=== PATIENT | female | born 1990 | race Caucasian/White ===

== ENCOUNTER 2017-09-18 08:48 | Emergency (ER) | payer OTHER ==
[~2017-09-18] VITALS: Ht 162.6 cm; Wt 99.2 kg
[2017-09-18 08:50] VITALS: BP 127/83
[2017-09-18 09:32] LABS: BASOPHILS # (AUTO) 0.03 x10^3/uL (0-0.1); BASOPHILS % (AUTO) 0 % (0-1); EOSINOPHILS # (AUTO) 0.23 x10^3/uL (0-0.4); EOSINOPHILS % (AUTO) 3 % (1-7); LYMPHOCYTES # (AUTO) 1.53 x10^3/uL (1-3.4); LYMPHOCYTES % (AUTO) 20 % (22-44); MD NO; MEAN CORPUSCULAR HEMOGLOBIN 29.2 pg (27.0-34.8); MEAN CORPUSCULAR HGB CONC 33.4 g/dL (32.4-35.8); MEAN CORPUSCULAR VOLUME 87.5 fL (80-100); MEAN PLATELET VOLUME 7.1 fL (7.4-10.4); MONOCYTES # (AUTO) 0.56 x10^3/uL (0.2-0.8); MONOCYTES % (AUTO) 8 % (2-9); NEUTROPHILS # (AUTO) 5.14 x10^3/uL (1.8-6.8); NEUTROPHILS % (AUTO) 69 % (42-75); PLATELET COUNT 405 x10^3/uL (130-400); RED BLOOD COUNT 3.79 x10^6/uL (3.82-5.3); RED CELL DISTRIBUTION WIDTH 13.6 % (9.6-15.2)
== END 2017-09-18 10:10 | disposition home or self-care (01) ==
LOC: ED 10:04
DX: K64.4 Residual hemorrhoidal skin tags (principal); K62.5 Hemorrhage of anus and rectum; D64.9 Anemia, unspecified; K60.0 Acute anal fissure
CPT/HCPCS: 36415; 85025; 99283

== ENCOUNTER → 2017-09-27 | Outpatient (CLI) | payer OTHER ==
[~2017-09-27] MED LIST: METF500T4 PO; NORG1TAB27 PO; SPIR50TA PO
[2017-09-27 10:38] LABS: BASOPHILS # (AUTO) 0.03 x10^3/uL (0-0.1); BASOPHILS % (AUTO) 0 % (0-1); EOSINOPHILS # (AUTO) 0.28 x10^3/uL (0-0.4); EOSINOPHILS % (AUTO) 4 % (1-7); LYMPHOCYTES # (AUTO) 1.78 x10^3/uL (1-3.4); LYMPHOCYTES % (AUTO) 24 % (22-44); MD NO; MEAN CORPUSCULAR HGB CONC 33.4 g/dL (32.4-35.8); MEAN CORPUSCULAR VOLUME 86.8 fL (80-100); MEAN PLATELET VOLUME 6.8 fL (7.4-10.4); MONOCYTES # (AUTO) 0.53 x10^3/uL (0.2-0.8); MONOCYTES % (AUTO) 7 % (2-9); NEUTROPHILS # (AUTO) 4.67 x10^3/uL (1.8-6.8); NEUTROPHILS % (AUTO) 64 % (42-75); PLATELET COUNT 422 x10^3/uL (130-400); RED BLOOD COUNT 3.83 x10^6/uL (3.82-5.3); RED CELL DISTRIBUTION WIDTH 13.8 % (9.6-15.2)
[2017-09-27 10:48] LABS: ALANINE AMINOTRANSFERASE 18 U/L (12-78); ALBUMIN 3.2 g/dL (3.4-5.0); ANION GAP 6 mmol/L (5-15); CALCIUM 8.5 mg/dL (8.5-10.1); CHLORIDE 104 mmol/L (98-107)
[2017-09-27 10:51] LABS: ALKALINE PHOSPHATASE 86 U/L (45-117); BILIRUBIN,TOTAL 0.8 mg/dL (0.2-1.0); CREATININE 1.43 mg/dL (0.55-1.02)
== END | disposition home or self-care (01) ==
LOC: STAR 09:33
PROVIDERS: ATTEND Surgery
DX: Z01.818 Encounter for other preprocedural examination (principal)
CPT/HCPCS: 36415; 80053; 85025; 93005

== ENCOUNTER 2017-10-04 09:39 | Day surgery (SDC) | payer OTHER ==
[~2017-10-04] VITALS: Ht 162.6 cm; Wt 92.7 kg
[~2017-10-04 09:39] MED LIST changes: -METF500T4 PO; +METF500T5 PO
[2017-10-04] MEDS ORDERED: BUPIVACAINE LIPOSOME/PF INFIL ONE (09:45)
[2017-10-04] MEDS ORDERED: LACTATED RINGERS 1,000 ML IV SCH (09:53)
[2017-10-04 09:54] VITALS: BP 128/86
[2017-10-04] MEDS ORDERED: ACETAMINOPHEN 500 MG TABLET ONE (10:09)
[2017-10-04] MEDS ORDERED: ONDANSETRON ODT 8 MG ONE (10:09)
[2017-10-04] MEDS ORDERED: GABAPENTIN 300 MG CAPSULE ONE (10:09)
[2017-10-04] MEDS ORDERED: LABETALOL 5MG/ML, 20ML ONE (10:23)
[2017-10-04] MEDS ORDERED: ROCURONIUM 10 MG/ML,10ML ONE (10:23)
[2017-10-04] MEDS ORDERED: PROPOFOL 10 MG/ML, 20ML ONE (10:23)
[2017-10-04] MEDS ORDERED: GABAPENTIN 300 MG CAPSULE PO ONE (10:30)
[2017-10-04] MEDS ORDERED: ONDANSETRON ODT 8 MG PO ONE (10:30)
[2017-10-04] MEDS ORDERED: ACETAMINOPHEN 500 MG TABLET PO ONE (10:30)
[2017-10-04] MEDS ORDERED: KETAMINE 10 MG/ML, 20ML ONE (10:32)
[2017-10-04] MEDS ORDERED: ACETAMINOPHEN 500 MG TABLET PO STA (10:33)
[2017-10-04] MEDS ORDERED: DEXAMETHASONE 4 MG/ML, 1ML ONE ×2 (10:33)
[2017-10-04] MEDS ORDERED: ONDANSETRON ODT 8 MG PO STA (10:33)
[2017-10-04] MEDS ORDERED: GABAPENTIN 300 MG CAPSULE PO STA (10:33)
[2017-10-04] MEDS ORDERED: FENTANYL PF 100 MCG/2ML ONE ×3 (10:38→11:45)
[2017-10-04] MEDS ORDERED: hydrALAzine 20 MG/ML, 1ML IV PRN (11:00)
[2017-10-04] MEDS ORDERED: LABETALOL 5MG/ML, 20ML IV PRN (11:00)
[2017-10-04] MEDS ORDERED: OXYcodone 5 MG/5 ML ORAL.SOL UDC PO PRN (11:00)
[2017-10-04] MEDS ORDERED: HYDROmorphone 1 MG/ML, 1ML IV PRN (11:00)
[2017-10-04] MEDS ORDERED: PROMETHAZINE 25 MG/ML, 1ML IV PRN (11:00)
[2017-10-04] MEDS ORDERED: FENTANYL PF 100 MCG/2ML IV PRN (11:00)
[2017-10-04] MEDS ORDERED: LORazepam 2 MG/ML, 1ML IVPush PRN (11:00)
[2017-10-04] MEDS ORDERED: HALOPERIDOL 5 MG/ML IV PRN (11:00)
[2017-10-04] MEDS ORDERED: MEPERIDINE/PF 25MG/0.5ML IVPush PRN (11:00)
[2017-10-04] MEDS ORDERED: MIDAZOLAM 1 MG/ML, 2ML ONE (11:14)
[2017-10-04] MEDS ORDERED: OXYcodone 5 MG/5 ML ORAL.SOL UDC ONE (11:46)
== END 2017-10-04 14:15 | disposition home or self-care (01) ==
LOC: OUT 09:39
PROVIDERS: ATTEND Surgery
DX: K64.8 Other hemorrhoids (principal); K64.4 Residual hemorrhoidal skin tags; K62.0 Anal polyp; D50.9 Iron deficiency anemia, unspecified; K62.89 Other specified diseases of anus and rectum; E66.9 Obesity, unspecified; Z68.35 Body mass index [BMI] 35.0-35.9, adult; Z98.890 Other specified postprocedural states
CPT/HCPCS: 45171; 46260; 82962; 88305; 88331; C1729; C9290; J1100; J2250; J2704; J3010; J7120; Q0162

== ENCOUNTER 2018-02-25 16:34 | Inpatient (IN) | payer OTHER ==
[~2018-02-25] VITALS: Ht 157.5 cm; Wt 92.0 kg
[~2018-02-25 16:34] MED LIST changes: +METF500T17 PO; -METF500T5 PO
[2018-02-25] MEDS ORDERED: SODIUM CHLORIDE FLUSH 10ML SYR IVF ONE ×2 (17:00→19:00)
[2018-02-25] MEDS ORDERED: ONDANSETRON ODT 4 MG PO ONE (17:00)
[2018-02-25] MEDS ORDERED: ONDANSETRON ODT 4 MG ONE (17:09)
[2018-02-25 17:36] LABS: BASOPHILS % (AUTO) 0 % (0-1); EOSINOPHILS # (AUTO) 0.05 x10^3/uL (0-0.4); EOSINOPHILS % (AUTO) 0 % (1-7); LYMPHOCYTES # (AUTO) 0.62 x10^3/uL (1-3.4); LYMPHOCYTES % (AUTO) 5 % (22-44); MD NO; MEAN CORPUSCULAR HEMOGLOBIN 26.1 pg (27.0-34.8); MEAN CORPUSCULAR HGB CONC 32.5 g/dL (32.4-35.8); MEAN CORPUSCULAR VOLUME 80.4 fL (80-100); MEAN PLATELET VOLUME 6.6 fL (7.4-10.4); MONOCYTES % (AUTO) 5 % (2-9); NEUTROPHILS % (AUTO) 90 % (42-75); PLATELET COUNT 357 x10^3/uL (130-400); RED BLOOD COUNT 3.94 x10^6/uL (3.82-5.3); RED CELL DISTRIBUTION WIDTH 14.9 % (9.6-15.2)
[2018-02-25 17:45] LABS: ALANINE AMINOTRANSFERASE 39 U/L (12-78); ALBUMIN 3.7 g/dL (3.4-5.0); ANION GAP 10 mmol/L (5-15); CALCIUM 9.3 mg/dL (8.5-10.1); CHLORIDE 105 mmol/L (98-107)
[2018-02-25 17:53] LABS: ALKALINE PHOSPHATASE 124 U/L (45-117); BILIRUBIN,TOTAL 0.3 mg/dL (0.2-1.0); CREATININE 0.92 mg/dL (0.55-1.02); TOTAL PROTEIN 8.7 g/dL (6.4-8.2)
[2018-02-25] MEDS ORDERED: ONDANSETRON 2MG/ML, 2ML IVPush ONE (19:00)
[2018-02-25] MEDS ORDERED: SODIUM CHLORIDE 0.9% 1,000ML IVBOLUS ONE (19:00)
[2018-02-25] MEDS ORDERED: MORPHINE SULFATE 4 MG/ML, 1ML IVPush PRN (19:00)
[2018-02-25] MEDS ORDERED: ONDANSETRON 2MG/ML, 2ML ONE (19:09)
[2018-02-25] MEDS ORDERED: MORPHINE SULFATE 4 MG/ML, 1ML ONE (19:10)
[2018-02-25] MEDS ORDERED: SODIUM CHLORIDE 0.9% 1,000 ML IV ONE (19:11)
[2018-02-25] MEDS ORDERED: SODIUM CHLORIDE FLUSH 10ML SYR IVF PRN (19:30)
[2018-02-25 20:21] VITALS: BP 106/65
[2018-02-25] MEDS ORDERED: ONDANSETRON ODT 4 MG PO PRN (20:30)
[2018-02-25] MEDS ORDERED: LABETALOL 5MG/ML, 20ML IVPush PRN (20:30)
[2018-02-25] MEDS ORDERED: BISACODYL 10 MG SUPP PR PRN (20:30)
[2018-02-25] MEDS ORDERED: HEPARIN 5,000 UNITS/ML, 1ML SQ SCH (20:30)
[2018-02-25] MEDS ORDERED: ACETAMINOPHEN 325 MG TABLET PO PRN (20:30)
[2018-02-25] MEDS ORDERED: POLYETHYLENE GLYCOL 17 GM PACKET PO PRN (20:30)
[2018-02-25] MEDS ORDERED: DOCUSATE 100 MG CAPSULE PO PRN (20:30)
[2018-02-25] MEDS ORDERED: hydrALAzine 20 MG/ML, 1ML IVPush PRN (20:30)
[2018-02-25] MEDS ORDERED: morphine SULFATE 10 MG/ML, 1ML IVPush PRN (20:30)
[2018-02-25] MEDS ORDERED: PANTOPRAZOLE 40 MG IV IVPush SCH (20:30)
[2018-02-25] MEDS ORDERED: PROMETHAZINE 25 MG/ML, 1ML IM PRN (20:30)
[2018-02-25] MEDS ORDERED: HYDROcodone/APAP 5/325 TABLET PO PRN (20:30)
[2018-02-25] MEDS ORDERED: ONDANSETRON 2MG/ML, 2ML IVPush PRN (20:30)
[2018-02-25 21:27] LABS: FREE T4 (FREE THYROXINE) 1.44 ng/dL (0.76-1.46); THYROID STIMULATING HORMONE 1.39 mIU/L (0.358-3.740)
[2018-02-25 21:44] LABS: HEMOGLOBIN A1C 5.1 % (4.2-6.3)
[2018-02-25 22:07] LABS: MICROSCOPIC NOT IND
[2018-02-25 22:12] LABS: CULTURE INDICATED? NO
[2018-02-26 01:05] VITALS: BP 111/68
[2018-02-26] MEDS ORDERED: MESA1POW PO (02:13)
[2018-02-26] MEDS: SODIUM CHLORIDE 0.9% 1,000 ML IV SCH ×3 (02:17→08:47)
[2018-02-26 04:50] LABS: BASOPHILS # (AUTO) 0.01 x10^3/uL (0-0.1); BASOPHILS % (AUTO) 0 % (0-1); EOSINOPHILS # (AUTO) 0.04 x10^3/uL (0-0.4); EOSINOPHILS % (AUTO) 1 % (1-7); LYMPHOCYTES % (AUTO) 22 % (22-44); MD NO; MEAN CORPUSCULAR HEMOGLOBIN 26.5 pg (27.0-34.8); MEAN CORPUSCULAR VOLUME 80.4 fL (80-100); MEAN PLATELET VOLUME 6.6 fL (7.4-10.4); MONOCYTES # (AUTO) 0.53 x10^3/uL (0.2-0.8); MONOCYTES % (AUTO) 9 % (2-9); NEUTROPHILS # (AUTO) 4.05 x10^3/uL (1.8-6.8); NEUTROPHILS % (AUTO) 68 % (42-75); PLATELET COUNT 301 x10^3/uL (130-400); RED BLOOD COUNT 3.18 x10^6/uL (3.82-5.3); RED CELL DISTRIBUTION WIDTH 14.9 % (9.6-15.2)
[2018-02-26 04:58] LABS: ALBUMIN 2.7 g/dL (3.4-5.0); ANION GAP 8 mmol/L (5-15); CALCIUM 7.9 mg/dL (8.5-10.1); CHLORIDE 107 mmol/L (98-107)
[2018-02-26 05:05] LABS: ALANINE AMINOTRANSFERASE 26 U/L (12-78); ALKALINE PHOSPHATASE 89 U/L (45-117); BILIRUBIN,TOTAL 0.4 mg/dL (0.2-1.0); CHOL/HDL RATIO 5.2; CHOLESTEROL, TOTAL 141 mg/dL (140-239); CREATININE 0.86 mg/dL (0.55-1.02); HDL CHOL % 19 % (28-40); HDL CHOLESTEROL (DIRECT) 27 mg/dL (40-60); LDL CHOLESTEROL,CALCULATED 86 mg/dL (54-169); LDL/HDL RATIO 3.2 (0.5-3.0); TOTAL PROTEIN 6.6 g/dL (6.4-8.2); TRIGLYCERIDES 138 mg/dL (50-200); VLDL CHOLESTEROL 28 mg/dL (0-25)
[2018-02-26 07:30] VITALS: BP 97/65
[2018-02-26] MEDS ORDERED: POTASSIUM CHLORIDE 40 MEQ in SODIUM CHLORIDE 0.9% 500 ML IV ONE (08:30)
[2018-02-26 13:21] LABS: HCG UR SG 1.024 (1.003-1.030)
[2018-02-26 13:56] VITALS: BP 89/56
[2018-02-26 14:00] VITALS: BP 105/71
[2018-02-26 19:10] VITALS: BP 104/69
[2018-02-26] MEDS ORDERED: PANTOPROZOLE 40MG TABLET PO SCH (21:00)
[2018-02-26 22:41] LABS: OCCULT BLOOD NEGATIVE (NEGATIVE)
[2018-02-27 01:35] VITALS: BP 112/72
[2018-02-27 05:23] LABS: ALANINE AMINOTRANSFERASE 23 U/L (12-78); ALBUMIN 2.9 g/dL (3.4-5.0); ANION GAP 6 mmol/L (5-15); CHLORIDE 105 mmol/L (98-107)
[2018-02-27 05:26] LABS: ALKALINE PHOSPHATASE 94 U/L (45-117); BILIRUBIN,TOTAL 0.2 mg/dL (0.2-1.0); TOTAL PROTEIN 7.1 g/dL (6.4-8.2)
[2018-02-27 08:30] VITALS: BP 108/70
[2018-02-27] MEDS ORDERED: SIMV40TA PO (11:45)
== END 2018-02-27 13:50 | disposition home or self-care (01) | DRG 391 ==
LOC: ED 18:04 → EDIP 19:11 → 3NW 19:49 → DCLOUNGE 02-27 13:37
PROVIDERS: ADMIT Internal Medicine; ATTEND Internal Medicine
DX: K29.70 Gastritis, unspecified, without bleeding (principal); K85.30 Drug induced acute pancreatitis without necrosis or infection; K51.90 Ulcerative colitis, unspecified, without complications; Y92.89 Other specified places as the place of occurrence of the external cause; E11.9 Type 2 diabetes mellitus without complications; D64.9 Anemia, unspecified; E28.2 Polycystic ovarian syndrome; E66.9 Obesity, unspecified; E78.5 Hyperlipidemia, unspecified; K08.89 Other specified disorders of teeth and supporting structures; Z83.3 Family history of diabetes mellitus; T39.395A Adverse effect of other nonsteroidal anti-inflammatory drugs [NSAID], initial encounter; T47.1X5A Adverse effect of other antacids and anti-gastric-secretion drugs, initial encounter; Z68.37 Body mass index [BMI] 37.0-37.9, adult; Z23 Encounter for immunization
CPT/HCPCS: 36415; 74022; 80053; 80061; 81003; 81025; 82272; 83036; 83690; 83735; 84439; 84443; 85025; 90656; 93005; 96374; 96375; G0378; J2405; J3480; Q0162; C9113; J2270; J7030; J7040